=== PATIENT | male | born 1995 | race Two or more races ===

== ENCOUNTER 2021-06-08 09:26 | Emergency (ER) | payer OTHER ==
[~2021-06-08] VITALS: Ht 177.8 cm; Wt 97.7 kg
[2021-06-08 09:42] VITALS: BP 125/64
[2021-06-08] MEDS ORDERED: LIDOCAINE 1% Multi-Dose 20 ML VIAL. INJ ONE (10:30)
[2021-06-08] MEDS ORDERED: DIPH,PERTUSS(ACELL),TET VAC/PF 0.5 ML SYRINGE. VAX IM ONE (10:30)
--- NOTE | 2021-06-08 11:00 | RAD ---
XR HAND_RIGHT 3 VIEWS Clinical indications: Reason: LACERATION OVER DORSAL THUMB Findings: No acute fracture or dislocation or osteolytic process is evident. Scaphoid bone is intact. No radiopaque foreign body is apparent. IMPRESSION: No acute osseous abnormality is evident. Electronically signed by: Chandan Rosado MD (06/08/2021 10:58 AM) [id number]
[2021-06-08] MEDS ORDERED: CEPH500C PO (11:16)
--- NOTE | 2021-06-08 11:17 | PHYS DOC ---
Past Medical History Past Surgical History: No Surgical History Smoking Status: Current Every Day Smoker Alcohol Use: Rarely General Adult EDM: Chief Complaint: LACERATION/AVULSION HPI: HPI: Patient is a 26 year old male who presents with was at work today when a saw got away from him and cut his right dorsal thumb at the DIP. Is approximately an inch long. He does have full range of motion of the joint. Rates his pain a burning pain 5 out of 10. He does need a tetanus shot. His only history is smoking. Review of Systems: Review of Systems: Constitutional: Denies fever or chills. [] Eyes: Denies change in visual acuity. [] HENT: Denies nasal congestion or sore throat. [] Respiratory: Denies cough or shortness of breath. [] Cardiovascular: Denies chest pain or edema. [] GI: Denies abdominal pain, nausea, vomiting, bloody stools or diarrhea. [] : Denies dysuria. [] Musculoskeletal: Denies back pain or +right thumb pain joint pain. [] Integument: Denies rash. +Thumb laceration[] Neurologic: Denies headache, focal weakness or sensory changes. [] Endocrine: Denies polyuria or polydipsia. [] Lymphatic: Denies swollen glands. [] Psychiatric: Denies depression or anxiety. [] Heart Score: C/O Chest Pain: No Risk Factors: Risk Factors: DM, Current or recent (<one month) smoker, HTN, HLP, family history of CAD, obesity. Risk Scores: Score 0 - 3: 2.5% MACE over next 6 weeks - Discharge Home Score 4 - 6: 20.3% MACE over next 6 weeks - Admit for Clinical Observation Score 7 - 10: 72.7% MACE over next 6 weeks - Early Invasive Strategies Current Medications: Current Medications Medications (Trade) Dose Ordered Sig/Natalya Start Time Stop Time Status Last Admin Dose Admin Diphtheria/ Tetanus/Acell Pertussis (ADACEL TDap SYRINGE) 0.5 ml ONCE ONCE 06/08/21 10:30 06/08/21 10:31 DC 06/08/21 11:04 0.5 ML Lidocaine HCl (Lidocaine 1% 20ml Vial) 20 ml 1X ONCE 06/08/21 10:30 06/08/21 10:31 DC 06/08/21 11:03 20 ML Allergies: Allergies: Allergies Coded Allergies Type Severity Reaction Last Updated Verified No Known Drug Allergies 06/08/21 No Physical Exam: PE: Constitutional: Well developed, well nourished, no acute distress, non-toxic appearance. [] HENT: Normocephalic, atraumatic, bilateral external ears normal, oropharynx moist, no oral exudates, nose normal. [] Eyes: PERRLA, EOMI, conjunctiva normal, no discharge. [] Neck: Normal range of motion, no tenderness, supple, no stridor. [] Cardiovascular:Heart rate regular rhythm, no murmur [] Lungs & Thorax: Bilateral breath sounds clear to auscultation [] Abdomen: Bowel sounds normal, soft, no tenderness, no masses, no pulsatile masses. [] Skin: Warm, dry, no erythema, no rash. Right dorsal thumb laceration[] Back: No tenderness, no CVA tenderness. [] Extremities: No tenderness, no cyanosis, no clubbing, ROM intact, no edema. [] Neurologic: Alert and oriented X 3, normal motor function, normal sensory function, no focal deficits noted. [] Psychologic: Affect normal, judgement normal, mood normal. [] Current Patient Data: Vital Signs: Vital Signs Date Time Temp Pulse Resp B/P (MAP) Pulse Ox O2 Delivery O2 Flow Rate FiO2 06/08/21 09:42 98.1 58 16 125/64 99 Room Air 98.1 EKG: EKG: [] Radiology/Procedures: Radiology/Procedures: [] Impression: [facility] [address] [place] [address] IMAGING REPORT Signed PATIENT: GANESH NIELSEN ACCOUNT: [id number] : 1995 LOCATION: ER AGE: 26 SEX: M EXAM STATUS: REG ER ORD. PHYSICIAN: SERGEI ROMAN APRN REASON: LACERATION OVER DORSAL THUMB PROCEDURE: HAND RIGHT 3V XR HAND_RIGHT 3 VIEWS Clinical indications: Reason: LACERATION OVER DORSAL THUMB Findings: No acute fracture or dislocation or osteolytic process is evident. Scaphoid bone is intact. No radiopaque foreign body is apparent. IMPRESSION: No acute osseous abnormality is evident. Electronically signed by: Aden Rosado MD (06/08/2021 10:58 AM) [id number] DICTATED and SIGNED BY: ADEN ROSADO MD DATE: 06/08/21 [id number] Course & Med Decision Making: Course & Med Decision Making Pertinent Labs and Imaging studies reviewed. (See chart for details) See HPI. Alert and oriented x4. Ambulatory with a steady gait. Speaks in full clear sentences. Radial pulse strong present. Cap refill less than 2 seconds. Skin pink warm and dry. Bleeding stopped. Full range of motion of all thumb joints. He can make a full fist and has full range of motion of the thumb. There appears to be no foreign bodies or ligament damage. He will placed in a aluminum splint after he is sutured. Patient is given a tetanus shot. Laceration repair Location: Dorsal thumb over DIP joint 1 inch by 1 inch laceration Local anesthesia: 1% lidocaine Interrupted sutures/Internal sutures: 9 sutures using 4-0 Nerve/ligament/muscle damage: None Cleaning and irrigation: Chlorhexidine and saline The appropriate timeout was taken. The area was prepped and draped in the usual sterile fashion. The wound was copiously irrigated with normal saline and chlorhexidine. Patient tolerated well without complication. Dressing was applied to the area follow-up education is given to observe for signs and symptoms of infection, bleeding and to follow-up promptly if these occur. Patient can return in 48 hours for a wound recheck. Sutures to be removed in 7 to 10 days. [] Shyanne Disclaimer: Dragdhara Disclaimer: This electronic medical record was generated, in whole or in part, using a voice recognition dictation system. Departure Departure Impression: Primary Impression: Laceration Disposition: 01 HOME / SELF CARE / HOMELESS Condition: STABLE Referrals: NO PCP (PCP) Patient Instructions: Laceration Care, Adult Additional Instructions: Return in 10 days to get your sutures removed. Watch for signs of infection. Keep it clean and covered specially when you are at work. Follow-up with a primary care doctor if needed. If signs of infection such as redness, drainage or swelling and increased pain you need to return to the hospital. Scripts Cephalexin (CEPHALEXIN) 500 Mg Capsule 1 CAP PO TID, #21 CAP Prov: SERGEI ROMAN APRN 06/08/21 SERGEI ROMAN APRN Jun 08, 2021 11:17
== END 2021-06-08 11:50 | disposition home or self-care (01) ==
LOC: ER 09:26
DX: S61.011A Laceration without foreign body of right thumb without damage to nail, initial encounter (principal); F17.200 Nicotine dependence, unspecified, uncomplicated; W27.0XXA Contact with workbench tool, initial encounter; Y93.89 Activity, other specified; Y92.89 Other specified places as the place of occurrence of the external cause; Y99.8 Other external cause status
CPT/HCPCS: 12001; 73130; 90471; 90715; 99283; J3490